=== PATIENT | female | born 1965 | race Caucasian/White ===

== ENCOUNTER → 2017-12-03 14:38 | Outpatient (CLI) | payer OTHER, SELFPAY ==
--- NOTE | 2017-12-03 14:42 | RAD_ITS ---
STUDY: X-RAY - ABDOMEN/PELVIS REASON FOR EXAM: Female, 52 years old. History of kidney stones TECHNIQUE: Two AP supine views of the abdomen and pelvis. COMPARISON: October 30, 2016 and October 13, 2016. FINDINGS: Normal visualized lung bases. There is an unremarkable bowel gas pattern. There is no demonstrated free abdominal air. The visualized liver, spleen and kidneys are grossly normal in size and morphology. Normal soft tissue structures. Normal visualized osseous structures. RAD/Abdomen Single View IMPRESSION: Normal x-ray examination of the abdomen and pelvis. No stones are seen. Electronically Signed: Mike Zepeda MD at 10:00 EDT , Service support ,
== END ==
PROVIDERS: Family Provider Internal Medicine; PCP Internal Medicine; Visit Provider Urology
DX: Z87.442 Personal history of urinary calculi (principal)
CPT/HCPCS: 74018

== ENCOUNTER → 2017-12-28 16:15 | Outpatient (CLI) | payer OTHER, SELFPAY ==
--- NOTE | 2017-12-28 16:15 | DT_ITS ---
This patient was seen during an EMR downtime December 28, 2017 - January 04, 2018. This patient may have a combination of paper and electronic documentation or all paper documentation. All documentation is viewable within the e-chart portion of [email or web address] for each patient visit.
--- NOTE | 2017-12-28 16:45 | MRI_ITS ---
STUDY: MRI LUMBAR SPINE WITHOUT CONTRAST REASON FOR EXAM: Female, 52 years old. Low back pain and right lower extremity radiculopathy TECHNIQUE: Standardized fat and water weighted pulse sequences were obtained in the sagittal and axial planes. COMPARISON: None FINDINGS: T12-L1: Normal endplates. Normal disc height, hydration and morphology. Normal bilateral facet joints. Normal central canal and bilateral lateral recesses. Normal bilateral intervertebral neural foramina. Normal lumbar lordosis. There is no substantial scoliosis. Normal conus medullaris that terminates at the L1-2: Normal endplates. Normal disc height, hydration and morphology. Normal bilateral facet joints. Normal central canal and bilateral lateral recesses. Normal bilateral intervertebral neural foramina. L2-3: Normal endplates. Normal disc height, hydration and morphology. Normal bilateral facet joints. Normal central canal and bilateral lateral recesses. Normal bilateral intervertebral neural foramina. L3-4: Normal endplates. Normal disc height, desiccation and minor annular bulge.. Minor facet arthropathy.. Normal central canal. Minor bilateral recess encroachment.. Normal bilateral intervertebral neural foramina. L4-5: Normal endplates. Normal disc height, desiccation and minor annular bulge with small right posterolateral/foraminal disc protrusion.. Mild facet arthropathy and thickening of ligamenta flava.. Normal central canal. Mild left lateral recess and neuroforaminal encroachment with moderate narrowing on the right.. L5-S1: Normal endplates. Normal disc height, desiccation and minimal annular bulge. Bilateral facet arthropathy.. Normal central canal and bilateral lateral recesses. Normal bilateral intervertebral neural foramina. Incidental finding of small perineural cyst within the right nerve root foramen Normal visualized sacral ala. Normal visualized paraspinous soft tissue structures. MRI/Spine Lumbar (Routine) IMPRESSION: Mild spinal stenosis at L3-4 and slightly more advanced at L4-5 greater on the right secondary to disc disease and bony hypertrophy. Minimal annular bulge and facet arthropathy at L5-S1 without significant spinal stenosis.. Incidental finding of perineural cyst in the right nerve root foramen Electronically Signed: Harry Lam MD at 21:33 EDT , Service support ,
== END ==
PROVIDERS: Family Provider Internal Medicine; PCP Internal Medicine; Visit Provider Internal Medicine
DX: M54.41 Lumbago with sciatica, right side (principal); M48.07 Spinal stenosis, lumbosacral region
CPT/HCPCS: 72148

== ENCOUNTER 2018-02-10 09:04 | Emergency (ER) | payer OTHER, SELFPAY ==
[2018-02-10 09:05] VITALS: BP 138/83; PULSE 67; RESP 16; TEMP 36.6; BMI 34.2
--- NOTE | 2018-02-10 09:29 | ED.VISSUMM ---
- ER Visit Summary Date of Service: 02/10/18 Chief Complaint: Back pain History of Present Illness: The patient is a [address] Gillette and Dr. Sun. She reports that she has had low back pain for approximately 2 months. She states that she had been doing well for the past 2 weeks until 2 days ago. At that time her pain became much worse. She describes it as a continuous sharp, aching pain that is 10 out of 10 with movement or ambulation. It is 9 out of 10 at rest. It is relieved by nothing including Crane. She reports she has tingling in her right foot that comes and goes. Pain radiates down the back of her right leg to the level of her foot. She denies any problems with her bowels or her bladder. No groin numbness. No recent trauma including fall, MVA, or change in activity. Review of systems: General: No fever, chills, cold sweats. Cardiovascular: No chest pain, palpitations. Respiratory: No cough, shortness of breath, dyspnea on exertion. Gastrointestinal: No abdominal pain, nausea, vomiting, diarrhea, melena, or hematochezia. Genitourinary: No dysuria, frequency, hematuria. Skin: No rash. Neuro: No headache, numbness, weakness. Physical Examination: Vitals: Stable. Afebrile. General: A&O x 3. NAD. Cardiovascular exam: Regular rate and rhythm, no murmur, rub or gallop. Respiratory exam: Clear to auscultation bilaterally. No wheezes or stridor. Abdominal exam: Soft, nontender, nondistended, normal bowel sounds. No peritoneal signs. Back: Diffuse moderate tenderness to palpation over the lumbar spine and the paraspinous musculature in the lumbar region. No point tenderness. Negative straight leg on the left. Positive straight leg raise on the right at approximately 10? while supine. 5/5 DF, PF, EHL bilaterally. Normal sensation to light touch throughout. Extremity: No clubbing, cyanosis, or edema. Test Results: Patient had an MRI December 28 it was reviewed. It showed mild spinal stenosis at L3-L4 and slightly more advanced L5 at L4/L5. This is greater on the right secondary to disc disease and bony hypertrophy. Minimal annular bulge and facet arthropathy at the at L5/S1 without significant spinal stenosis. Incidental finding of a perineural cyst in the right nerve root foramen. Emergency Department Course and Treatment: An [facility] report was obtained which shows patient's had 3 prescriptions for opiates in the past year. These have all been since November. Her last prescription was January 01. Patient was treated with a dose of morphine and naproxen p.o. Treatment Plan: Patient will be discharged naproxen and oxycodone. She is instructed to follow-up with Dr. Sun tomorrow as previously scheduled. The signs and symptoms of cauda equina syndrome were discussed and she is instructed return for these. Disposition: To home in improved and stable condition. Impression: 1. Low back pain, repeat encounter. This note was generated with [employer] ([employer]) dictation software. It may contain incorrect words, spelling, and punctuation that were not noted in review of the chart prior to signing ED Disposition - Plan for ED Patient: Chief Complaint: Back Instructions: ED Neck Back Pain General Prescriptions: Oxycodone HCl/Acetaminophen [Percocet 5/325] 1 - 2 tablet PO Q6H PRN PRN 3 Days #12 tablet PRN Reason: Pain Naproxen [Naprosyn] 500 mg PO BID #14 tablet Referrals: Devante Sun [NON-STAFF] - Keep Amy appointment
[2018-02-10] MEDS: Naproxen 500 MG Tablet PO (09:58)
[2018-02-10] MEDS: morphine 10 MG/ML Syringe IM (09:58)
[2018-02-10 10:05] VITALS: BP 129/55; PULSE 70; RESP 14; O2SAT 100
[2018-02-10] MEDS: Ondansetron ODT 4 MG Tablet PO (10:07)
== END 2018-02-10 10:33 | disposition home or self-care (01) ==
PROVIDERS: Emergency Provider Emergency Medicine; Family Provider Internal Medicine; PCP Internal Medicine
DX: M54.5 Low back pain (principal); Z87.442 Personal history of urinary calculi
CPT/HCPCS: 96372; 99283